=== PATIENT | female | born 1965 | race Two or more races ===

== ENCOUNTER 2019-06-03 00:44 | Inpatient (IN) | payer OTHER ==
[~2019-06-03] VITALS: Ht 160 cm; Wt 94.3 kg
[2019-06-03] MEDS ORDERED: ACETAMINOPHEN 325 MG TABLET PO PRN (01:00)
[2019-06-03] MEDS ORDERED: MAG HYDROX/AL HYDROX/SIMETH 30 ML UDC PO PRN (01:00)
[2019-06-03] MEDS ORDERED: DOCUSATE SODIUM 100 MG CAPSULE PO PRN (01:00)
--- NOTE | 2019-06-03 01:00 | NUR ---
RN OPENING NOTES RECEIVED REPORT FROM [facility] MENDY LISA . Pt IS A/OX4, VERBAL, ABLE TO MAKE NEEDS KNOWN. IV ACCESS ON RAC #18G, SL. INTACT AND PATENT. CHIEF COMPLAINTS: NEW ONSET AFIB, WITH LEFT SIDED CP. PER REPORT FROM [facility] MENDY LISA, Pt RECEIVED ASPIRIN 325MG AND 2 SPRAYS OF NITRO PRIOR TO ARRIVAL TO [facility]. AT [facility], WAS ADMINISTERED CARDIZEM 12MG IVP & CARDIZEM 120MG PO ALONG WITH ZOFRAN 4MG IV. SAFETY MEASURES IN PLACE. BED LOW, LOCKED, HOB ELEVATE, SIDE RAILS UP, CALL LIGHT AND BEDSIDE TABLE WITHIN REACH. TELE READING: CONTROLLED AFIB BETWEEN 70s-80s. WILL CONTINUE TO MONITOR Pt's CONDITION AND SAFETY THROUGHOUT THE NIGHT.
[2019-06-03] MEDS ORDERED: CARV3.12 PO (01:37)
[2019-06-03] MEDS ORDERED: AMLO2.5T2 PO (01:37)
[2019-06-03] MEDS ORDERED: BENA20TA9 PO (01:37)
[2019-06-03] MEDS ORDERED: FENO150C2 PO (01:37)
[2019-06-03] MEDS ORDERED: ROSU10TA2 PO (01:37)
[2019-06-03] MEDS ORDERED: DILTIAZEM HCL IV 125 MG in IV NS 0.9% 100 ML IV PRN (02:00)
[2019-06-03] MEDS: DILTIAZEM HCL 30 MG TABLET PO SCH ×3 (07:17→18:00)
--- NOTE | 2019-06-03 07:50 | NUR ---
RN CLOSING NOTES NO SIGNIFICANT CHANGES IN Pt's CONDITION. Pt REMAINS STABLE PER BASELINE. NO S/S OF ACUTE DISTRESS OR SEVERE SOB NOTED DURING THE SHIFT. ALL NEEDS MET AND ATTENDED TO. SAFETY MEASURES IN PLACE. TELE READING CONTROLLED AFIB 70s-80s. ENDORSED TO DAYSHIFT RN FOR Pt's HOLLY.
--- NOTE | 2019-06-03 08:02 | NUR ---
PRESS BRAKE OPERATOR OPENING NOTE RECEIVED REPORT FROM [facility] SHIFT NURSE. PT AWAKE IN BED, ALERT AND ORIENTED X 4, ON ROOM AIR, SATURATING WELL, RESPIRATIONS EVEN AND UNLABORED, NO SIGNS OF RESPIRATORY DISTRESS NOTED. IV SITE ON RIGHT AC G18 INTACT, PATENT, WITH SALINE LOCK IN PLACE. BED IN LOW POSITION, LOCKED, CALL LIGHT WITHIN REACH. INTRODUCED SELF TO PT AND DISCUSSED PLAN OF CARE.
[2019-06-03] MEDS ORDERED: AMLODIPINE BESYLATE 2.5 MG TABLET PO SCH (09:00)
[2019-06-03] MEDS ORDERED: CARVEDILOL 3.125 MG TABLET PO SCH (09:00)
[2019-06-03] MEDS ORDERED: ENOXAPARIN SODIUM 60 MG/0.6 ML DISP.SYRIN SQ SCH (09:00)
[2019-06-03] MEDS ORDERED: RIVAROXABAN 10 MG TABLET PO SCH (09:00)
[2019-06-03] MEDS ORDERED: BENAZEPRIL HCL 20 MG TABLET PO SCH (09:00)
[2019-06-03] MEDS ORDERED: Medication Not On Formulary EA (Rosuvastatin Calcium (Crestor) 1 TAB) PO SCH (09:00)
[2019-06-03] MEDS: ASPIRIN 325 MG TABLET PO SCH (09:08)
[2019-06-03] MEDS: Fenofibrate 48 MG TABLET PO SCH (09:21)
[2019-06-03 10:46] LABS: APPEARANCE,URINE CLEAR (CLEAR); COLOR,URINE STRAW (YELLOW)
[2019-06-03 10:47] LABS: BLOOD, URINE NEGATIVE Ery/uL (NEGATIVE); PROTEIN,URINE NEGATIVE (NEGATIVE); UGLUCOSE NEGATIVE (NEGATIVE)
[2019-06-03 10:48] LABS: BILIRUBIN,URINE NEGATIVE (NEGATIVE); KETONES,URINE NEGATIVE (NEGATIVE); LEUKOCYTE ESTERASE ,URINE NEGATIVE (NEGATIVE); NITRITE, URINE NEGATIVE (NEGATIVE); UROBILINOGEN,URINE 0.2 EU/dL (0.2)
[2019-06-03 11:25] LABS: BASOPHILS # (AUTO) 0.2 /CMM (0.0-0.2); BASOPHILS % (AUTO) 2.5 % (0.0-2.0); EOSINOPHILS % (AUTO) 8.6 % (0.0-6.0); HEMATOCRIT 39 % (33-45); HEMOGLOBIN 12.9 g/dL (11.5-14.8); LYMPHOCYTES # (AUTO) 2.5 /CMM (0.8-4.8); LYMPHOCYTES % (AUTO) 24.1 % (20.0-44.0); MEAN CORPUSCULAR HGB CONC 33 g/dl (31.0-36.0); MEAN CORPUSCULAR VOLUME 94 fL (82-100); MONOCYTES # (AUTO) 0.6 /CMM (0.1-1.30); MONOCYTES % (AUTO) 6.2 % (2.0-12.0); NEUTROPHILS # (AUTO) 5.9 /CMM (1.8-8.9); NEUTROPHILS % (AUTO) 58.6 % (43.0-81.0); PLATELET COUNT (AUTO) 217 /CMM (150-450); RED BLOOD CELL COUNT(AUTO) 4.15 MIL/uL (4.0-5.2); WHITE BLOOD COUNT (AUTO) 10.1 K/uL (4.3-11.0)
[2019-06-03 11:48] LABS: CALCIUM, SERUM 9.6 mg/dL (8.5-10.1); CREATININE 0.5 mg/dL (0.6-1.3); POTASSIUM 3.8 mmol/L (3.5-5.1)
[2019-06-03 11:50] LABS: THYROID STIMULATING HORMONE 0.858 uIU/mL (0.358-3.74)
[2019-06-03] MEDS: RIVAROXABAN 10 MG TABLET PO SCH (16:53)
--- NOTE | 2019-06-03 18:58 | NUR ---
PRODUCTION PROOFREADER CLOSING NOTE PT AWAKE IN BED, ALERT AND ORIENTED X 4, ON ROOM AIR, SATURATING WELL, RESPIRATIONS EVEN AND UNLABORED, NO SIGNS OF RESPIRATORY DISTRESS NOTED. IV SITE ON RIGHT AC G18 INTACT, PATENT, WITH SALINE LOCK IN PLACE. BED IN LOW POSITION, LOCKED, CALL LIGHT WITHIN REACH. PROVIDED SAFETY AND COMFORT TO PT THROUGHOUT SHIFT. WILL ENDORSE TO NOC SHIFT NURSE.
--- NOTE | 2019-06-03 19:20 | NUR ---
STOCK GRADER PM OPENING NOTE BEDSIDE REPORT RECIEVED FROM KATHERINE BROOKE. PT AWAKE IN BED. REVIEWED POC QUESTIONS CONCERNS ADDRESSED. REVIEWED WITH PATIENT PLAN TO BE NPO AFTER MIDNIGHT FOR SPECIAL HEART TEST TO BE DONE TOMORROW AM. VERBALIZED UNDERSTANDING. ALERT AND ORIENTED X 4, ON ROOM AIR, RESPIRATIONS EVEN AND UNLABORED, NO SIGNS OF RESPIRATORY DISTRESS NOTED. PT DENIES PAIN. IV SITE ON RIGHT AC G18 INTACT, PATENT, SALINE LOCKED. BED IN LOW POSITION, LOCKED, CALL LIGHT WITHIN REACH.
[2019-06-03 20:00] VITALS: BP 110/58
[2019-06-03] MEDS ORDERED: ATORVASTATIN 10 MG TABLET PO SCH (22:00)
[2019-06-03] MEDS ORDERED: SIMVASTATIN 20 MG TABLET PO SCH (22:00)
[2019-06-04] MEDS: DILTIAZEM HCL 30 MG TABLET PO SCH ×3 (00:28→12:06)
[2019-06-04 00:31] VITALS: BP 134/58
[2019-06-04 04:00] VITALS: BP 117/69
[2019-06-04 07:27] LABS: BASOPHILS # (AUTO) 0.1 /CMM (0.0-0.2); BASOPHILS % (AUTO) 1.1 % (0.0-2.0); EOSINOPHILS % (AUTO) 3.1 % (0.0-6.0); HEMATOCRIT 36 % (33-45); HEMOGLOBIN 11.7 g/dL (11.5-14.8); LYMPHOCYTES # (AUTO) 2.4 /CMM (0.8-4.8); LYMPHOCYTES % (AUTO) 34.4 % (20.0-44.0); MEAN CORPUSCULAR HGB CONC 33 g/dl (31.0-36.0); MEAN CORPUSCULAR VOLUME 94 fL (82-100); MONOCYTES # (AUTO) 0.4 /CMM (0.1-1.30); MONOCYTES % (AUTO) 6.5 % (2.0-12.0); NEUTROPHILS # (AUTO) 3.8 /CMM (1.8-8.9); NEUTROPHILS % (AUTO) 54.9 % (43.0-81.0); PLATELET COUNT (AUTO) 200 /CMM (150-450); RED BLOOD CELL COUNT(AUTO) 3.82 MIL/uL (4.0-5.2); WHITE BLOOD COUNT (AUTO) 6.9 K/uL (4.3-11.0)
[2019-06-04 07:44] LABS: CALCIUM, SERUM 9.4 mg/dL (8.5-10.1); CARBON DIOXIDE 28 mmol/L (21-32); CHLORIDE 109 mmol/L (98-107); CREATININE 0.6 mg/dL (0.6-1.3); GLUCOSE 105 mg/dL (74-106); MAGNESIUM 1.9 mg/dL (1.8-2.4); PHOSPHORUS 2.8 mg/dL (2.5-4.9); POTASSIUM 3.9 mmol/L (3.5-5.1); SODIUM SERUM 141 mmol/L (136-145); UREA NITROGEN, BLOOD 14 mg/dL (7-18)
[2019-06-04 07:47] LABS: CHOLESTEROL 122 mg/dL (<200); HDL CHOLESTEROL 37 mg/dL (40-60); LDL 69 mg/dL (0-99); TRIGLYCERIDES 140 mg/dL (30-150)
[2019-06-04 08:00] VITALS: BP 138/75
[2019-06-04] MEDS: ASPIRIN 325 MG TABLET PO SCH (09:20)
[2019-06-04] MEDS ORDERED: IBUPROFEN 200 MG TABLET ONE (11:11)
[2019-06-04] MEDS ORDERED: IV NS 0.9% 250 ML IV ONE (11:11)
[2019-06-04] MEDS ORDERED: IOHEXOL-350 100 ML VIAL IV ONE (11:11)
[2019-06-04] MEDS ORDERED: METOPROLOL TARTRATE INJ 5 MG/5 ML AMPUL ONE (11:11)
[2019-06-04] MEDS ORDERED: CT SWABBABLE VALVE TRANS SET 1 EA INFUS.SET MC ONE (11:12)
[2019-06-04] MEDS ORDERED: NITROGLYCERIN 0.4 MG/TAB BOTTLE ONE (11:12)
[2019-06-04] MEDS: Fenofibrate 48 MG TABLET PO SCH (11:22)
[2019-06-04] MEDS ORDERED: METOPROLOL TARTRATE INJ 5 MG/5 ML AMPUL IVP PRN (11:30)
[2019-06-04] MEDS ORDERED: NITROGLYCERIN 0.4 MG/TAB BOTTLE SL ONE (11:30)
[2019-06-04 12:23] VITALS: BP 121/49
[2019-06-04] MEDS ORDERED: SIMVASTATIN 10 MG TABLET PO SCH (14:14)
[2019-06-04 16:00] VITALS: BP 128/64
[2019-06-04] MEDS: RIVAROXABAN 10 MG TABLET PO SCH (16:44)
--- NOTE | 2019-06-04 17:31 | NUR ---
received while asleep, but arousable. NPO for CT of coronary arteries. Down for the test, seen by dr Jacobo, and per this , cleared TOWBOAT ENGINEER, Layo Navarrete called to discharge to home, one RX for Xarelto given to the patient , patient is to continue all home meds as advised by the physician. ready to go home after dinner, she said
--- NOTE | 2019-06-04 18:22 | NUR ---
insists to have a copy of dr Jacobo, prior to discharge. The copy given and demanded all results of tests, done during this hospitalization. Advised to go to [facility] office during the week for all copies. patient is discharged to home
--- NOTE | 2019-06-04 19:10 | NUR ---
RN NOTES: RECEIVED PATIENT LYING COMFORTABLY IN BED, A/OX4 READY TO BE DISCHARGE, PER ENDORSEMENT FROM OUTGOING RN SHE ALREADY COMPLETED MEDICATION LIST AND DISCHARGE INSTRUCTION GIVEN TO PATIENT, SHE DID BODY ASSESSMENT AND SKIN IS INTACT. MEDICINE AND BELONGINGS GIVEN. -DOUBLE CHECK WITH PATIENT, SHE SIGNED THE DISCHARGE PAPER ALONG WITH THE BELONGINGS AND SHE SHOWED THE PLASTIC WITH HER MEDICATION INSIDE FROM THE PHARMACY-RETURNED [id number]. -AWAITING FOR HER SISTER TO ARRIVED AND PICK HER UP.
--- NOTE | 2019-06-04 19:41 | NUR ---
RN NOTES: AT 1940 PATIENT WAS CLINIC OFFICE ASSISTANT BY HER SISTER, AMBULATORY GOING HOME, WITH MEDICINE AND BELONGINGS.
[2019-06-04] MEDS ORDERED: CARVEDILOL 3.125 MG TABLET PO SCH (21:00)
[2019-06-05] MEDS ORDERED: AMLODIPINE BESYLATE 2.5 MG TABLET PO SCH (09:00)
[2019-06-05] MEDS ORDERED: ASPIRIN EC 81 MG TABLET.DR PO SCH (09:00)
== END 2019-06-04 19:40 | disposition home or self-care (01) | DRG 201 ==
LOC: TELE1 00:44
PROVIDERS: ADMIT Nurse Practitioner Acute Care; ATTEND Nurse Practitioner Acute Care
DX: I48.91 Unspecified atrial fibrillation (principal); E66.9 Obesity, unspecified; F41.9 Anxiety disorder, unspecified; I10 Essential (primary) hypertension; Z68.36 Body mass index [BMI] 36.0-36.9, adult; Z82.49 Family history of ischemic heart disease and other diseases of the circulatory system; Z83.3 Family history of diabetes mellitus; E78.5 Hyperlipidemia, unspecified; Z98.890 Other specified postprocedural states; Z90.49 Acquired absence of other specified parts of digestive tract; R73.03 Prediabetes
CPT/HCPCS: 36415; 75574; 80048-TC; 80061-TC; 81000-TC; 83735-TC; 84100-TC; 84439-TC; 84443-TC; 84484-TC; 85025-TC; 85610-TC; 85730-TC; 87081-TC; 93307-TC; G0378; J3490; J7050; Q9967